=== PATIENT | female | born 1950 | race African-American/Black ===

== ENCOUNTER 2016-06-04 22:55 | Inpatient (IN) | payer MEDICARE, OTHER ==
[~2016-06-04] VITALS: Ht 165.1 cm; Wt 78.5 kg
[2016-06-04] MEDS ORDERED: SODIUM CHLORIDE 0.9% 1,000 ML ONE (23:17)
[2016-06-05] VITALS (7 sets, daily range): BP systolic 112–161; RESP 16–20; TEMP 97.2–98.4; Ht 165.1 cm; Wt 78.5 kg
[2016-06-05] MEDS ORDERED: ONDANSETRON 4 MG VIAL ONE (00:37)
[2016-06-05] MEDS ORDERED: DILAUDID 1 MG/ML AMP ONE ×2 (00:37→01:59)
[2016-06-05] MEDS: DEXTROSE 5% SALINE 0.45% 1,000 ML IV SCH ×2 (03:24→19:47)
[2016-06-05] MEDS: DILAUDID 1 MG/ML AMP IV PRN ×2 (05:24→10:05)
[2016-06-05] MEDS: ONDANSETRON 4 MG VIAL IV PUSH PRN ×2 (05:24→10:05)
[2016-06-05] MEDS ORDERED: LIDOCAINE 2% SYR 5 ML IV ONE ×2 (07:43→07:51)
[2016-06-05] MEDS ORDERED: PROPOFOL 50ML VIAL IV ONE (07:43)
[2016-06-05] MEDS ORDERED: PROPOFOL 20 ML PER ML IV ONE (07:51)
[2016-06-05] MEDS ORDERED: CAPECITABINE 500 MG TAB PO SCH (14:34)
[2016-06-05] MEDS: amLODIPine 10 MG TAB PO SCH (15:24)
[2016-06-05] MEDS: FAMOTIDINE 20 MG TAB PO SCH ×2 (15:25→21:06)
[2016-06-05] MEDS: PANTOPRAZOLE 40 MG TAB PO SCH (15:25)
[2016-06-05] MEDS: KCL CR 20 MEQ TAB PO SCH ×2 (15:26→21:06)
[2016-06-05] MEDS: MULTIVITS/MINERALS (THERAGRAN M) TAB PO SCH (15:26)
[2016-06-05] MEDS: cloNIDine 0.2 MG TAB PO SCH ×2 (15:27→21:06)
[2016-06-05] MEDS ORDERED: *PINK BRACELET XX ONE (19:50)
[2016-06-05] MEDS ORDERED: [UNRECOGNIZED DRUG - REMARK] XX SCH (20:00)
[2016-06-05] MEDS ORDERED: CAPECITABINE 500 MG PO SCH ×2 (21:00)
[2016-06-05] MEDS: CAPECITABINE 500 MG PO SCH (21:00)
[2016-06-05] MEDS: *HOME MEDS IN MED CART XX SCH (21:05)
[2016-06-05] MEDS ORDERED: DILAUDID 1 MG/ML AMP IV PRN (21:05)
[2016-06-06] VITALS (8 sets, daily range): BP systolic 102–152; RESP 18–20; TEMP 98–98.6
[2016-06-06] MEDS: PANTOPRAZOLE 40 MG TAB PO SCH (06:17)
[2016-06-06] MEDS: *HOME MEDS IN MED CART XX SCH ×2 (08:00→20:00)
[2016-06-06] MEDS: amLODIPine 10 MG TAB PO SCH (09:00)
[2016-06-06] MEDS: cloNIDine 0.2 MG TAB PO SCH (09:00)
[2016-06-06] MEDS: CAPECITABINE 500 MG PO SCH ×2 (09:00→09:20)
[2016-06-06] MEDS: FAMOTIDINE 20 MG TAB PO SCH ×2 (09:20→21:17)
[2016-06-06] MEDS: MULTIVITS/MINERALS (THERAGRAN M) TAB PO SCH (09:21)
[2016-06-06] MEDS: KCL CR 20 MEQ TAB PO SCH ×2 (09:21→11:48)
[2016-06-06] MEDS: LACTULOSE SOLN 20GM/30ML UDC PO SCH ×2 (10:55→21:16)
[2016-06-06] MEDS: DEXTROSE 5% SALINE 0.45% 1,000 ML IV SCH (10:55)
[2016-06-06] MEDS: MAGNESIUM SULF 1 GM/100 ML 100 ML IV SCH ×2 (12:45→14:30)
[2016-06-06] MEDS ORDERED: LACTULOSE SOLN 20GM/30ML UDC RECTAL ONE (18:00)
[2016-06-07] VITALS (14 sets, daily range): BP systolic 108–157; RESP 18–23; TEMP 97.8–98.8
[2016-06-07] MEDS: DEXTROSE 5% SALINE 0.45% 1,000 ML IV SCH ×4 (02:06→21:51)
[2016-06-07] MEDS: PANTOPRAZOLE 40 MG TAB PO SCH (06:17)
[2016-06-07] MEDS: *HOME MEDS IN MED CART XX SCH ×2 (08:00→19:42)
[2016-06-07] MEDS: LACTULOSE SOLN 20GM/30ML UDC PO SCH ×2 (08:30→21:40)
[2016-06-07] MEDS: KCL CR 20 MEQ TAB PO SCH ×2 (08:30→21:40)
[2016-06-07] MEDS: amLODIPine 10 MG TAB PO SCH (08:30)
[2016-06-07] MEDS: MULTIVITS/MINERALS (THERAGRAN M) TAB PO SCH (08:30)
[2016-06-07] MEDS: FAMOTIDINE 20 MG TAB PO SCH ×2 (08:30→21:40)
[2016-06-07] MEDS ORDERED: cloNIDine 0.1 MG TAB PO SCH (09:00)
[2016-06-07] MEDS ORDERED: ALU/MAG/SIM 30 ML UDC PO PRN (19:25)
[2016-06-08] VITALS (7 sets, daily range): BP systolic 131–182; RESP 16–20; TEMP 97.8–98.8
[2016-06-08] MEDS: PANTOPRAZOLE 40 MG TAB PO SCH (06:22)
[2016-06-08] MEDS: DEXTROSE 5% SALINE 0.45% 1,000 ML IV SCH ×2 (06:22→19:25)
[2016-06-08] MEDS: *HOME MEDS IN MED CART XX SCH ×2 (08:00→20:00)
[2016-06-08] MEDS: KCL CR 20 MEQ TAB PO SCH ×2 (08:03→21:24)
[2016-06-08] MEDS: LACTULOSE SOLN 20GM/30ML UDC PO SCH ×3 (08:03→21:24)
[2016-06-08] MEDS: MULTIVITS/MINERALS (THERAGRAN M) TAB PO SCH (08:04)
[2016-06-08] MEDS: amLODIPine 10 MG TAB PO SCH (08:04)
[2016-06-08] MEDS: FAMOTIDINE 20 MG TAB PO SCH ×2 (08:04→21:24)
[2016-06-08] MEDS ORDERED: cloNIDine 0.1 MG TAB PO SCH ×2 (09:00→10:31)
[2016-06-08] MEDS: RIFAXIMIN 550 MG TAB PO SCH ×2 (10:02→21:24)
[2016-06-08] MEDS ORDERED: TELMISARTAN 20 MG TAB PO SCH (21:00)
[2016-06-09] VITALS (7 sets, daily range): BP systolic 127–180; RESP 18; TEMP 97.4–98.3
[2016-06-09] MEDS: PANTOPRAZOLE 40 MG TAB PO SCH (05:17)
[2016-06-09] MEDS: *HOME MEDS IN MED CART XX SCH ×2 (07:31→19:51)
[2016-06-09] MEDS: LACTULOSE SOLN 20GM/30ML UDC PO SCH ×3 (08:07→19:52)
[2016-06-09] MEDS: FAMOTIDINE 20 MG TAB PO SCH ×2 (08:07→19:53)
[2016-06-09] MEDS: KCL CR 20 MEQ TAB PO SCH ×2 (08:07→19:53)
[2016-06-09] MEDS: amLODIPine 10 MG TAB PO SCH (08:07)
[2016-06-09] MEDS: RIFAXIMIN 550 MG TAB PO SCH ×2 (08:07→19:53)
[2016-06-09] MEDS: MULTIVITS/MINERALS (THERAGRAN M) TAB PO SCH (08:08)
[2016-06-09] MEDS: DEXTROSE 5% SALINE 0.45% 1,000 ML IV SCH (15:37)
[2016-06-09] MEDS: TELMISARTAN 20 MG TAB PO SCH (19:55)
[2016-06-10 03:52] VITALS: BP_SYST 146; RESP 20; TEMP 98
[2016-06-10] MEDS: PANTOPRAZOLE 40 MG TAB PO SCH (05:05)
[2016-06-10] MEDS: SODIUM CHLORIDE 0.9% FLUSH BAG 500 ML IV SCH (05:08)
[2016-06-10] MEDS: DEXTROSE 5% SALINE 0.45% 1,000 ML IV SCH (05:10)
[2016-06-10 07:47] VITALS: BP_SYST 136; RESP 18; TEMP 97.9
[2016-06-10] MEDS: *HOME MEDS IN MED CART XX SCH ×2 (08:00→20:00)
[2016-06-10] MEDS: FAMOTIDINE 20 MG TAB PO SCH ×2 (09:53→21:50)
[2016-06-10] MEDS: KCL CR 20 MEQ TAB PO SCH ×2 (09:53→21:50)
[2016-06-10] MEDS: amLODIPine 10 MG TAB PO SCH (09:53)
[2016-06-10] MEDS: RIFAXIMIN 550 MG TAB PO SCH ×2 (09:53→21:50)
[2016-06-10] MEDS: MULTIVITS/MINERALS (THERAGRAN M) TAB PO SCH (09:54)
[2016-06-10] MEDS: LACTULOSE SOLN 20GM/30ML UDC PO SCH ×3 (09:57→21:49)
[2016-06-10 11:27] VITALS: BP_SYST 153; RESP 18; TEMP 97.8
[2016-06-10 15:39] VITALS: BP_SYST 142; RESP 16; TEMP 98.2
[2016-06-10 19:24] VITALS: BP_SYST 158; RESP 18; TEMP 97.8
[2016-06-10] MEDS: TELMISARTAN 20 MG TAB PO SCH (21:51)
[2016-06-10 22:54] VITALS: BP_SYST 154; RESP 18; TEMP 98.1
[2016-06-11] MEDS: DEXTROSE 5% SALINE 0.45% 1,000 ML IV SCH (03:44)
[2016-06-11 04:57] VITALS: BP_SYST 133; RESP 18; TEMP 98.2
[2016-06-11] MEDS: PANTOPRAZOLE 40 MG TAB PO SCH (04:59)
[2016-06-11] MEDS: SODIUM CHLORIDE 0.9% FLUSH BAG 500 ML IV SCH (05:00)
[2016-06-11 07:39] VITALS: BP_SYST 142; RESP 18; TEMP 98.1
[2016-06-11] MEDS: *HOME MEDS IN MED CART XX SCH ×2 (08:00→20:00)
[2016-06-11] MEDS: FAMOTIDINE 20 MG TAB PO SCH ×2 (09:20→21:43)
[2016-06-11] MEDS: MULTIVITS/MINERALS (THERAGRAN M) TAB PO SCH (09:20)
[2016-06-11] MEDS: LACTULOSE SOLN 20GM/30ML UDC PO SCH ×3 (09:20→21:42)
[2016-06-11] MEDS: KCL CR 20 MEQ TAB PO SCH ×2 (09:21→21:41)
[2016-06-11] MEDS: amLODIPine 10 MG TAB PO SCH (09:21)
[2016-06-11] MEDS: RIFAXIMIN 550 MG TAB PO SCH ×2 (09:21→21:43)
[2016-06-11 11:28] VITALS: BP_SYST 136; RESP 18; TEMP 98.2
[2016-06-11 15:35] VITALS: BP_SYST 146; RESP 18; TEMP 98.1
[2016-06-11 19:28] VITALS: BP_SYST 148; RESP 18; TEMP 98.6
[2016-06-11] MEDS: FLUTICASONE 0.05% NA BTL NARE EACH SCH (21:00)
[2016-06-11] MEDS: TELMISARTAN 20 MG TAB PO SCH (21:43)
[2016-06-11 22:56] VITALS: BP_SYST 166; RESP 18; TEMP 100
[2016-06-12 03:43] VITALS: BP_SYST 129; RESP 18; TEMP 98.3
[2016-06-12] MEDS: SODIUM CHLORIDE 0.9% FLUSH BAG 500 ML IV SCH (06:00)
[2016-06-12 07:29] VITALS: BP_SYST 154; RESP 18; TEMP 97.9
[2016-06-12] MEDS: *HOME MEDS IN MED CART XX SCH ×2 (08:00→20:00)
[2016-06-12] MEDS ORDERED: MISSING DOSE XX ONE (08:00)
[2016-06-12] MEDS: LACTULOSE SOLN 20GM/30ML UDC PO SCH ×3 (08:26→20:42)
[2016-06-12] MEDS: RIFAXIMIN 550 MG TAB PO SCH ×2 (08:26→20:44)
[2016-06-12] MEDS: MULTIVITS/MINERALS (THERAGRAN M) TAB PO SCH (08:26)
[2016-06-12] MEDS: PANTOPRAZOLE 40 MG TAB PO SCH (08:26)
[2016-06-12] MEDS: FLUTICASONE 0.05% NA BTL NARE EACH SCH ×2 (08:26→20:44)
[2016-06-12] MEDS: FAMOTIDINE 20 MG TAB PO SCH ×2 (08:27→20:44)
[2016-06-12] MEDS: amLODIPine 10 MG TAB PO SCH (08:27)
[2016-06-12] MEDS: KCL CR 20 MEQ TAB PO SCH ×2 (08:27→20:44)
[2016-06-12 11:17] VITALS: BP_SYST 145; RESP 18; TEMP 98.2
[2016-06-12] MEDS: ONDANSETRON 4 MG VIAL IV PUSH PRN (13:28)
[2016-06-12 15:07] VITALS: BP_SYST 127; RESP 18; TEMP 97.9
[2016-06-12 19:14] VITALS: BP_SYST 146; RESP 18; TEMP 97.3
[2016-06-12] MEDS: TELMISARTAN 20 MG TAB PO SCH (20:44)
[2016-06-12] MEDS: DEXTROSE 5% SALINE 0.45% 1,000 ML IV SCH (20:45)
[2016-06-12 22:17] VITALS: BP_SYST 131; RESP 18; TEMP 97.6
[2016-06-13] VITALS (16 sets, daily range): BP systolic 97–171; RESP 10–24; TEMP 96.7–98.6
[2016-06-13] MEDS: PANTOPRAZOLE 40 MG TAB PO SCH (04:44)
[2016-06-13] MEDS: SODIUM CHLORIDE 0.9% FLUSH BAG 500 ML IV SCH (04:44)
[2016-06-13] MEDS: *HOME MEDS IN MED CART XX SCH ×2 (08:00→20:00)
[2016-06-13] MEDS: KCL CR 20 MEQ TAB PO SCH ×2 (08:01→21:45)
[2016-06-13] MEDS: LACTULOSE SOLN 20GM/30ML UDC PO SCH ×3 (08:01→21:45)
[2016-06-13] MEDS: FAMOTIDINE 20 MG TAB PO SCH ×2 (08:01→21:45)
[2016-06-13] MEDS: RIFAXIMIN 550 MG TAB PO SCH ×2 (08:02→21:45)
[2016-06-13] MEDS ORDERED: LEVOFLOXACIN 500 MG/100 ML 100 ML IV STA (09:43)
[2016-06-13] MEDS: amLODIPine 10 MG TAB PO SCH (11:48)
[2016-06-13] MEDS: FLUTICASONE 0.05% NA BTL NARE EACH SCH ×2 (11:48→21:45)
[2016-06-13] MEDS: MULTIVITS/MINERALS (THERAGRAN M) TAB PO SCH (11:48)
[2016-06-13] MEDS: TELMISARTAN 20 MG TAB PO SCH (21:45)
[2016-06-13] MEDS: DEXTROSE 5% SALINE 0.45% 1,000 ML IV SCH (21:47)
[2016-06-14 03:15] VITALS: BP_SYST 152; RESP 16; TEMP 98.5
[2016-06-14] MEDS: PANTOPRAZOLE 40 MG TAB PO SCH (04:47)
[2016-06-14 07:55] VITALS: BP_SYST 141; RESP 16; TEMP 98.4
[2016-06-14] MEDS: *HOME MEDS IN MED CART XX SCH ×2 (08:00→19:30)
[2016-06-14] MEDS: KCL CR 20 MEQ TAB PO SCH ×2 (09:12→20:14)
[2016-06-14] MEDS: FLUTICASONE 0.05% NA BTL NARE EACH SCH ×2 (09:12→20:14)
[2016-06-14] MEDS: LACTULOSE SOLN 20GM/30ML UDC PO SCH ×3 (09:13→20:14)
[2016-06-14] MEDS: amLODIPine 10 MG TAB PO SCH (09:13)
[2016-06-14] MEDS: FAMOTIDINE 20 MG TAB PO SCH ×2 (09:13→20:14)
[2016-06-14] MEDS: MULTIVITS/MINERALS (THERAGRAN M) TAB PO SCH (09:14)
[2016-06-14] MEDS: RIFAXIMIN 550 MG TAB PO SCH ×2 (09:14→20:14)
[2016-06-14] MEDS ORDERED: OCTREOTIDE LAR 30 MG IM ONE (09:20)
[2016-06-14] MEDS ORDERED: DEXTROSE 5% SALINE 0.45% 1,000 ML IV SCH (10:20)
[2016-06-14 11:10] VITALS: BP_SYST 145; RESP 16; TEMP 98.5
[2016-06-14 15:11] VITALS: BP_SYST 134; RESP 16; TEMP 98.2
[2016-06-14 19:28] VITALS: BP_SYST 137; RESP 18; TEMP 98.7
[2016-06-14] MEDS: TELMISARTAN 20 MG TAB PO SCH (20:14)
[2016-06-14 23:11] VITALS: BP_SYST 146; RESP 20; TEMP 98.5
[2016-06-15 03:25] VITALS: BP_SYST 141; RESP 20; TEMP 98.3
[2016-06-15] MEDS: PANTOPRAZOLE 40 MG TAB PO SCH (05:05)
[2016-06-15 07:30] VITALS: BP_SYST 144; RESP 18; TEMP 98.2
[2016-06-15] MEDS: *HOME MEDS IN MED CART XX SCH (08:00)
[2016-06-15] MEDS: FLUTICASONE 0.05% NA BTL NARE EACH SCH (09:19)
[2016-06-15] MEDS: MULTIVITS/MINERALS (THERAGRAN M) TAB PO SCH (09:20)
[2016-06-15] MEDS: FAMOTIDINE 20 MG TAB PO SCH (09:20)
[2016-06-15] MEDS: RIFAXIMIN 550 MG TAB PO SCH (09:20)
[2016-06-15] MEDS: KCL CR 20 MEQ TAB PO SCH (09:20)
[2016-06-15] MEDS: LACTULOSE SOLN 20GM/30ML UDC PO SCH (09:20)
[2016-06-15] MEDS: amLODIPine 10 MG TAB PO SCH (09:20)
[2016-06-15 11:41] VITALS: BP_SYST 150; RESP 18; TEMP 98
[2016-06-15 11:52] VITALS: BP_SYST 150; RESP 18; TEMP 98
[2016-06-15 11:58] VITALS: BP_SYST 150; RESP 18; TEMP 98
== END 2016-06-15 12:32 | disposition home or self-care (01) | DRG 441 ==
LOC: ER 22:55 → EMR 22:56 → 4NT 06-05 03:19 → ENPENDDIS 06-05 18:19 → OBSVTOIN 06-05 18:19
PROVIDERS: ADMIT Internal Medicine Hematology & Oncology; ATTEND Internal Medicine Hematology & Oncology
PROC: 0DB68ZX Excision of Stomach, Via Natural or Artificial Opening Endoscopic, Diagnostic (ICD-10-PCS; principal; 2016-06-07 13:45)
PROC: 0FPB8DZ Removal of Intraluminal Device from Hepatobiliary Duct, Via Natural or Artificial Opening Endoscopic (ICD-10-PCS; 2016-06-13)
PROC: 0F7C8DZ Dilation of Ampulla of Vater with Intraluminal Device, Via Natural or Artificial Opening Endoscopic (ICD-10-PCS; 2016-06-13)
PROC: 0FC98ZZ Extirpation of Matter from Common Bile Duct, Via Natural or Artificial Opening Endoscopic (ICD-10-PCS; 2016-06-13)
DX: K72.90 Hepatic failure, unspecified without coma (principal); K83.1 Obstruction of bile duct; C78.7 Secondary malignant neoplasm of liver and intrahepatic bile duct; K52.1 Toxic gastroenteritis and colitis; I11.9 Hypertensive heart disease without heart failure; I47.1 Supraventricular tachycardia; C7A.8 Other malignant neuroendocrine tumors; K29.00 Acute gastritis without bleeding; K74.60 Unspecified cirrhosis of liver; E11.9 Type 2 diabetes mellitus without complications; E66.9 Obesity, unspecified; Z68.28 Body mass index [BMI] 28.0-28.9, adult; M19.90 Unspecified osteoarthritis, unspecified site; T47.3X5A Adverse effect of saline and osmotic laxatives, initial encounter; E87.6 Hypokalemia; Z92.21 Personal history of antineoplastic chemotherapy; Z87.891 Personal history of nicotine dependence
CPT/HCPCS: 36415; 70450; 74330; 76700; 80048; 80053; 81003; 82140; 82390; 82553; 82728; 82947; 83540; 83690; 83735; 84439; 84443; 84466; 84484; 85025; 86038; 86225; 87340; 88104; 88305; 88342; 93005; 96361; 96374; 96376